=== PATIENT | female | born 1995 | race Caucasian/White ===

== ENCOUNTER 2017-08-30 12:38 | Outpatient (RCR) | payer OTHER | END 2017-10-05 13:58 | LOC: WSOH 12:38 | DX: S63.641A Sprain of metacarpophalangeal joint of right thumb, initial encounter (principal); X50.0XXA Overexertion from strenuous movement or load, initial encounter; Y99.0 Civilian activity done for income or pay; Z88.8 Allergy status to other drugs, medicaments and biological substances ==

== ENCOUNTER 2018-01-26 08:45 | Outpatient (RCR) | payer OTHER | END 2018-01-26 10:16 | disposition home or self-care (01) | LOC: MKS.ESL.PT 08:45 | DX: M25.871 Other specified joint disorders, right ankle and foot (principal); S93.401D Sprain of unspecified ligament of right ankle, subsequent encounter; W00.0XXD Fall on same level due to ice and snow, subsequent encounter ==